=== PATIENT | female | born 1950 | race Caucasian/White ===

== ENCOUNTER 2018-12-09 15:13 | Emergency (ER) | payer OTHER ==
[2018-12-09 15:27] VITALS: O2SAT 98
[2018-12-09] MEDS ORDERED: Albuterol-Ipratrop 3 mg / 0.5 (3 ml) UD INH STA (16:16)
[2018-12-09] MEDS ORDERED: Promethazine/Cod 6.25mg-10mg/5ml Syr UD PO STA (16:17)
--- NOTE | 2018-12-09 16:35 | ED PDOC ---
History of Present Illness History of Present Illness: 68 year old female with a past medical history of gastritis, hypertension, COPD, diabetes, anemia, and fibrosis who was brought to the ED for evaluation of dry cough and difficulty breathing ongoing for approximately 2 months. Patient states that she has difficulty sleeping and reports that she has mild headaches. Aby who accompanied her to the Ed states that patient might have memory problems but is unable to quantify the degree as to which she has memory issues. Aby supplemented patients history and provided most of the information during the visit. He reports that patient usually sees a primary care doctor in [place] at the [facility] but that commute has now become too far for them. Aby admits that he is not the one who usually goes to appointments with the patient but he was sent here today by his uncle who is at work. He states that the patient lives with his uncle and he lives above them and can hear the patient whine in her sleep and attests to the fact that the patient is having difficulty sleeping. Aby states that the patients con dition has been worsening for the past 2 months and he thinks that her fibrosis medications are not working. He goes on to state that they see a fibrosis doctor in [facility] but is looking to switch is primary care to [place] as it is too difficult from them to travel back to [place] so often. Aby admits that he is looking for guidance from the provider to find a primary care in the area and is stating that he wants to find a fibrosis hospital and is looking for a recommendation. He also states that patient has had a lung surgery in the past and states that she has not had any chest pain or home oxygen in the past. Of note, provider asked many times what acute changes have prompted this ED visit and aby is unable to provide a clear answer and continues to state he is there to switch her PMD to this state. He states that her condition has been worsening over the past month but did not give any specific symptoms. Additionally, though aby stated that patient has a memory problem, provider noted no such limitation during the exchange. PMD: [facility] HPI: Influenza Time Seen by Provider: 12/09/18 15:44 Chief Complaint: Cough, Cold, Congestion Chief Complaint (Provider): Cough, Cold, Congestion History Per: Patient, Family (grandson ) Exam Limitations: no limitations Onset/Duration Of Symptoms: Days, Persistent Symptoms include: sore throat, cough. denies: chest pain Past Medical History Reviewed: Historical Data, Nursing Documentation, Vital Signs Vital Signs: Last Vital Signs Temp 98.1 F 12/09/18 15:24 Pulse 101 H 12/09/18 15:24 Resp 16 12/09/18 15:24 BP 98/64 L 12/09/18 15:24 Pulse Ox 98 12/09/18 15:24 - Medical History PMH: Anemia, COPD, Diabetes, Gastritis, HTN - Surgical History Other surgeries: lung surgery - Family History Family History: States: Unknown Family Hx - Social History Current smoker - smoking cessation education provided: No Alcohol: None Drugs: Denies - Immunization History Hx Influenza Vaccination: Yes (UTD) Hx Pneumococcal Vaccination: Yes (UTD) - Home Medications Home Medications: Ambulatory Orders Medication Instructions Recorded Aspirin 81 mg DAILY 02/20/14 Lantus 45 units DAILY 02/20/14 Losartan 25 mg DAILY 02/20/14 MetFORMIN 1 tab BID 02/20/14 Albuterol 0.083% [Albuterol 3 ml IH Q4 PRN #20 neb 12/09/18 Sulfate 3 Ml] Methylprednisolone [Medrol Dosepak] 4 mg PO DAILY #1 packet 12/09/18 Promethazine/Codeine 5 ml PO Q6 PRN #100 ml 12/09/18 [Phenergan/Codeine Oral Syrup] - Allergies Allergies/Adverse Reactions: Allergies Allergy/AdvReac Type Severity Reaction Status Date / Time No Known Allergies Allergy Verified 12/09/18 15:22 Review of Systems ROS Statement: Except As Marked, All Systems Reviewed And Found Negative Constitutional: Positive for: Other (unable to sleep ) ENT: Positive for: Throat Pain Cardiovascular: Negative for: Chest Pain Respiratory: Positive for: Cough Neurological: Positive for: Headache Physical Exam - Reviewed Nursing Documentation Reviewed: Yes Vital Signs Reviewed: Yes - Physical Exam Appears: Positive for: Non-toxic, No Acute Distress Head Exam: Positive for: ATRAUMATIC, NORMAL INSPECTION, NORMOCEPHALIC Skin: Positive for: Normal Color, Warm, DRY Eye Exam: Positive for: EOMI, Normal appearance, PERRL ENT: Positive for: Normal ENT Inspection Neck: Positive for: Normal, Painless ROM Cardiovascular/Chest: Positive for: Regular Rate, Rhythm. Negative for: Murmur Respiratory: Positive for: Normal Breath Sounds. Negative for: Wheezing, Respiratory Distress Gastrointestinal/Abdominal: Positive for: Normal Exam, Soft. Negative for: Tenderness Back: Positive for: Normal Inspection. Negative for: L CVA Tenderness, R CVA Tenderness Extremity: Positive for: Normal ROM. Negative for: Deformity, Swelling Neurologic/Psych: Positive for: Alert, Oriented. Negative for: Motor/Sensory Deficits Medical Decision Making Medical Decision Making: Time: 16:16 Impression: chronic shortness of breath ongoing for months Differentials: rule out pneumonia, COPD exacerbation, CHF Plan: --EKG --BNP --BMP --TSH --CBC --Chest x-ray --Duoneb 3 ml INH --Phenergan/Codeine 5 ml PO --Solu-Medrol 125 mg IVP --Toradol 15 mg IVP Upon provider evaluation, this seems to be a complex medical situation with multiple subsets. Provider will first treat any acute medical problems and then refer the family to the clinic. Provider explained to grandangelia that he will first try to ascertain the acute issues with the patient and discern if she has an any emergent problem. After this, he explains that he will refer them to a primary care doctor in the area that will allow them to transfer their care from [facility] to [place]. Provider also explained that to find a [facility], they would first have to connect with a pulmonoloigst who will take over the care of the patient and then refer them to a subspecialist who can help them out. Grandson and patient showed understanding of the providers plan and agreed to the process laid out for them. Both grandson and patient were cooperative with provider. 20:[address] FINDINGS: LUNGS: No pulmonary mass. An interstitial honeycomb lung pattern is seen in the p eriphery of both lung gordon; more pronounced in the basilar regions thought compatible with UIP/IPF. There are no pneumonic consolidations identified. PLEURAL SPACES: No evidence of pneumothorax. No pleural effusion. HEART: No cardiomegaly. No pericardial effusion. LYMPH NODES: No lymphadenopathy is evident. There are a couple of non-specific, non-enlarged anterior mediastinal lymph nodes noted. UPPER ABDOMEN: The upper abdominal solid organs are unremarkable. BONES: No acute osseous abnormality. IMPRESSION: 1. Evidence compatible with UIP/IPF as described above. 2. A few non--specific, non-enlarged anterior mediastinal lymph nodes are noted. Scribe Attestation: Documented by Viry Palmer, acting as a scribe for Jeimy Pittman MD. Provider Scribe Attestation: All medical record entries made by the Scribe were at my direction and personally dictated by me. I have reviewed the chart and agree that the record accurately reflects my personal performance of the history, physical exam, medical decision making, and the department course for this patient. I have also personally directed, reviewed, and agree with the discharge instructions and disposition. - Laboratory Results Result Diagrams: 12/09/18 17:15 12/09/18 17:15 - ECG ECG Rhythm: Positive for: Normal QRS, Normal ST Segment, Sinus Rhythm Rate: 100 O2 Sat by Pulse Oximetry: 98 (RA) Pulse Ox Interpretation: Normal - Progress Re-evaluation Time: 21:29 Condition: Re-examined, Improved Disposition - Clinical Impression Clinical Impression: COPD (chronic obstructive pulmonary disease), IPF (idiopathic pulmonary fibrosis) - Patient ED Disposition Is Patient to be Admitted: No Doctor Will See Patient In The: Office Counseled Patient/Family Regarding: Studies Performed, Diagnosis, Need For Followup - Disposition Referrals: [facility] [Outside] Pa Rust MD [Staff Provider] - Disposition: Routine/Home Disposition Time: 21:30 Condition: GOOD Additional Instructions: [facility], thank you for letting us take care of you today. Your provider was Jeimy Pittman MD and you were treated for COUGH, HEADACHE. The emergency medical care you received today was directed at your acute symptoms. If you were prescribed any medication, please fill it and take as directed. It may take several days for your symptoms to resolve. Return to the Emergency Department if your symptoms worsen, do not improve, or if you have any other problems. Please contact your doctor or call one of the physicians/clinics you have been referred to that are listed on the Patient Visit Information form that is included in your discharge packet. Bring any paperwork you were given at discharge with you along with any medications you are taking to your follow up visit. Our treatment cannot replace ongoing medical care by a primary care provider outside of the emergency department. Thank you for allowing the [facility] team to be part of your care today. If you had an X-Ray or CT scan: A Radiologist will review the ED reading if any change in treatment is needed we will contact you. If you had a blood, urine, or wound culture: It will take several days for the results, if any change in treatment is needed we will contact you. If you had an STI test: It will take 48 hours for the results. Please call after 1 week if you have not heard back. Instructions: Idiopathic Pulmonary Fibrosis Forms: [email or web address] ([place]) Print Language: VIETNAMESE
[2018-12-09 16:45] VITALS: PULSE 100
[2018-12-09] MEDS ORDERED: Promethazine/Cod 6.25mg-10mg/5ml Syr UD ONE (17:00)
[2018-12-09] MEDS ORDERED: Albuterol-Ipratrop 3 mg / 0.5 (3 ml) UD ONE (17:01)
[2018-12-09 17:22] LABS: BASO # 0.1 K/uL (0.0-0.2); BASO % 0.6 % (0.0-2.0); EOS # 0.2 K/uL (0.0-0.7); EOS % 1.9 % (0.0-4.0); LYMPH % 18.2 % (20.0-40.0); MEAN PLATELET VOLUME 7.1 fl (7.2-11.7); MONO # 0.5 K/uL (0.0-0.8); MONO % 4.4 % (0.0-10.0); NEUT # 8.1 K/uL (1.8-7.0); NEUT % 74.9 % (50.0-75.0); NRBC % 0.1 % (0.0-0.0); RBC 3.77 Mil/uL (3.80-5.20); RED CELL DISTRIBUTION WIDTH 15.1 % (11.5-14.5); WHITE BLOOD COUNT 10.8 K/uL (4.8-10.8)
[2018-12-09 17:37] LABS: BLOOD UREA NITROGEN 14 mg/dl (7-17); CALCIUM 9.1 mg/dL (8.4-10.2); GFR NON-AFRICAN AMERICAN > 60
[2018-12-09 17:43] LABS: B-TYPE NATRIURETIC PEPTIDE 175 pg/ml (0-900)
[2018-12-09] MEDS ORDERED: Sodium Chloride 0.9% 500 ML IV STA (18:47)
[2018-12-09 21:26] LABS: SQUAMOUS EPITHIAL 1 /hpf (0-5); URINE BACTERIA RARE (<OCC); URINE BILIRUBIN NEGATIVE (NEGATIVE); URINE BLOOD LARGE (NEGATIVE); URINE CLARITY SLIGHTY-CLOUDY (Clear); URINE COLOR YELLOW (YELLOW); URINE GLUCOSE (UA) NEG (NEGATIVE); URINE LEUKOCYTE ESTERASE NEG Leu/uL (Negative); URINE PROTEIN 100 mg/dL (NEGATIVE); URINE UROBILINOGEN 0.2-1.0 mg/dL (0.2-1.0)
[2018-12-09 22:53] VITALS: RESP 18
[2018-12-09 22:56] VITALS: BP 103/68; TEMP 98.5
--- NOTE | 2018-12-10 11:56 | CARD ---
APPROVED REPORT Date of service: 12/09/2018 EKG Measurement Heart [id number] <Conclusion> Normal sinus rhythm Inferior infarct, age undetermined Abnormal ECG
--- NOTE | 2018-12-10 15:05 | CT ---
Date of service: 12/09/2018 PROCEDURE: CT Chest without contrast HISTORY: Shortness of breath and cough. COMPARISON: None available. TECHNIQUE: Contiguous axial images were obtained through the chest without intravenous contrast enhancement. Sagittal and coronal reconstructions were performed. Radiation dose: Total exam DLP = 198.12 mGy-cm. This CT exam was performed using one or more of the following dose reduction techniques: Automated exposure control, adjustment of the mA and/or kV according to patient size, and/or use of iterative reconstruction technique. FINDINGS: LUNGS: Peripheral interstitial lung disease. Differential diagnosis: Sarcoidosis, eosinophilic pneumonia, cryptogenic organizing pneumonia, usual interstitial pneumonitis (UIP) and desquamative interstitial pneumonitis (DIP). The findings are likely chronic. No discrete pulmonary nodules or masses. MEDIASTINUM: Unremarkable thoracic aorta. No aneurysm. Normal sized heart. Main pulmonary artery unremarkable. No vascular congestion. No lymphadenopathy. No aortic atherosclerotic calcification. PLEURA: No pleural fluid. No pneumothorax. BONES: No fracture. No destructive lesion. UPPER ABDOMEN: Grossly unremarkable. OTHER FINDINGS: None. IMPRESSION: Peripheral interstitial lung disease, though a broader differential provided above, most likely etiology DIP/UIP. Concordant results (preliminary interpretation) provided by [id number] [facility]. Procedure Completed: 19:35. Preliminary Report: Dictated and Authenticated: 20:20. Final Interpretation: 14:59 December 10, 2018
--- NOTE | 2018-12-10 15:26 | RAD ---
Date of service: 12/09/2018 HISTORY: dyspnea COMPARISON: December 10, 2018 CT scan thorax TECHNIQUE: Chest PA and lateral FINDINGS: LUNGS: Interstitial lung disease better seen on concurrent CT scan. PLEURA: No significant pleural effusion identified. No pneumothorax apparent. CARDIOVASCULAR: No aortic atherosclerotic calcification present. Normal cardiac size. No pulmonary vascular congestion. OSSEOUS STRUCTURES: No significant abnormalities. VISUALIZED UPPER ABDOMEN: Normal. OTHER FINDINGS: None. IMPRESSION: Peripheral interstitial lung disease without focal/discrete infiltrate or mass.
== END 2018-12-09 20:20 | disposition home or self-care (01) ==
LOC: H.ER 15:13
DX: J44.9 Chronic obstructive pulmonary disease, unspecified (principal); J84.112 Idiopathic pulmonary fibrosis; E11.9 Type 2 diabetes mellitus without complications; I10 Essential (primary) hypertension; Z79.4 Long term (current) use of insulin; Z79.899 Other long term (current) drug therapy
CPT/HCPCS: 71046; 71250; 80048; 81003; 83880; 84443; 85025; 93005; 96361; 96374; 96375; 99283; J1885; J2930; J7030